=== PATIENT | female | born 1975 | race Caucasian/White ===

== ENCOUNTER 2017-07-21 10:39 | Emergency (ER) | payer BC ==
[~2017-07-21] VITALS: Ht 162.6 cm; Wt 106.3 kg
[~2017-07-21 10:39] MED LIST: COLACE100 MG PO; DARVOCET-N 1001 EAC1 PO; MOTRIN600 MG PO; Motrin PO; NOHOMEMEDS; PRENATAL TABLE1 EAC3 PO; VALIUM5 MG PO; VICODIN 5-5001 EACH PO; VICODIN,LORT1 TABLET PO; ZOLOFT50 MG PO; ZYRTEC10 M2 PO
[2017-07-21 11:38] LABS: EOSINOPHIL COUNT 0.1 K/uL (0-0.3); HEMATOCRIT 44.2 % (36.0-46.0); IMMATURE GRANULOCYTE (%) 0.3 % (0.0-0.7); INSTRUMENT ABS NEUTROPHIL CT 1.4 K/uL; LYMPHOCYTE COUNT 0.9 K/uL (1.0-2.8); MCH 25.5 PG (29.0-34.0); MCHC 32.4 G/DL (30.0-36.0); MCV 78.8 FL (83-99); MEAN PLAT.VOLUME 11.2 uM^3 (9.5-12.4); MONOCYTE (%) 23.5 % (3-12); MONOCYTE COUNT 0.7 K/uL (0-0.8); NEUTROPHIL (%) 45.4 % (45-76); NEUTROPHIL COUNT 1.4 K/uL (1.8-6.4); PLATELET COUNT 180 K/uL (156-360); RBC DIS.WIDTH-CV 14.2 % (11.8-14.6); RBC DIS.WIDTH-SD 40.6 % (39-53); RED BLOOD COUNT 5.61 M/uL (3.80-5.20)
[2017-07-21 11:46] LABS: CHLORIDE 103 mEq/L (99-109); INTER. NORMALIZED RATIO 1.2; POTASSIUM 3.2 mEq/L (3.7-5.4); SODIUM 137 mEq/L (136-147)
[2017-07-21 11:48] LABS: GLUCOSE 127 mg/dL (70-99)
[2017-07-21 11:49] LABS: ANION GAP 12 MEQ/L (2-14); PTT 29.6 SEC (25-37)
[2017-07-21 11:52] LABS: GFR ESTIMATE (CALCULATED) > 59 mL/min/
[2017-07-21 11:53] LABS: UREA NITROGEN (BUN) 7 mg/dL (9-23)
[2017-07-21 11:57] LABS: TROP-I INTERPRETATION NEGATIVE; TROPONIN-I < 0.01 ng/mL (0.0-0.30)
[2017-07-21 13:56] LABS: TROP-I INTERPRETATION NEGATIVE; TROPONIN-I < 0.01 ng/mL (0.0-0.30)
[2017-07-21] MEDS ORDERED: TYLENOL WITH C1 EACH PO (14:11)
[2017-07-21 14:50] VITALS: BP 138/90
== END 2017-07-21 14:53 | disposition home or self-care (01) ==
LOC: EME → EDBD 10:39 → EME 14:53
PROVIDERS: Emergency Medicine
DX: R07.89 Other chest pain (principal); R10.9 Unspecified abdominal pain; E11.9 Type 2 diabetes mellitus without complications; Z79.84 Long term (current) use of oral hypoglycemic drugs
CPT/HCPCS: 71010; 71275; 74177; 80048; 84484; 85025; 85379; 85610; 85730; 93005; 99281; 99285

== ENCOUNTER 2017-07-29 20:00 | Emergency (ER) | payer BC ==
[~2017-07-29] VITALS: Ht 162.6 cm; Wt 110.1 kg
[~2017-07-29 20:00] MED LIST changes: +TYLENOL WITH C1 EACH PO
[2017-07-29 20:06] VITALS: BP 148/94
[2017-07-29] MEDS ORDERED: PERCOCET 5/31 TABLET PO (20:33)
[2017-07-29] MEDS ORDERED: VALIUM5 MG PO (20:33)
== END 2017-07-29 20:42 | disposition home or self-care (01) ==
LOC: EME 20:00
DX: M62.838 Other muscle spasm (principal); M54.2 Cervicalgia; F17.200 Nicotine dependence, unspecified, uncomplicated
CPT/HCPCS: 99281; 99283

== ENCOUNTER 2017-12-29 04:58 | Emergency (ER) | payer BC ==
[~2017-12-29] VITALS: Ht 162.6 cm; Wt 108.2 kg
[~2017-12-29 04:58] MED LIST changes: +PERCOCET 5/31 TABLET PO
[2017-12-29 08:38] VITALS: BP 131/100
== END 2017-12-29 08:40 | disposition home or self-care (01) ==
LOC: EME 04:58
DX: M79.661 Pain in right lower leg (principal); Z87.891 Personal history of nicotine dependence
CPT/HCPCS: 93971; 99281; 99284

== ENCOUNTER 2018-03-20 19:42 | Emergency (ER) | payer BC ==
[~2018-03-20] VITALS: Ht 160 cm; Wt 106.8 kg
[2018-03-20 20:38] LABS: HEMATOCRIT 39.5 % (36.0-46.0); HEMOGLOBIN 12.8 G/DL (11.9-15.5); MCH 26.6 PG (29.0-34.0); MCHC 32.4 G/DL (30.0-36.0); PLATELET COUNT 257 K/uL (156-360); RBC DIS.WIDTH-CV 14.4 % (11.8-14.6); RBC DIS.WIDTH-SD 42.2 % (39-53); RED BLOOD COUNT 4.82 M/uL (3.80-5.20); WHITE BLOOD COUNT 5.9 K/uL (4.1-10.2)
[2018-03-20 20:46] LABS: CHLORIDE 102 mEq/L (99-109); POTASSIUM 4.2 mEq/L (3.7-5.4); SODIUM 138 mEq/L (136-147)
[2018-03-20 20:47] LABS: APPEARANCE CLEAR ((CLEAR)); BILIRUBIN NEGATIVE; BLOOD NEGATIVE; COLOR YELLOW ((YELLOW)); GLUCOSE (STRIP) NEGATIVE; KETONES NEGATIVE; LEUKOCYTES TRACE; NITRITE NEGATIVE; PROTEIN (STRIP) NEGATIVE; SPECIFIC GRAVITY 1.013 (1.000-1.030); UROBILINOGEN 0.2 MG/DL (0.2-1.0)
[2018-03-20 20:48] LABS: GLUCOSE 139 mg/dL (70-99)
[2018-03-20 20:49] LABS: TOTAL PROTEIN 7.5 g/dL (6.4-8.3)
[2018-03-20 20:49] LABS: BACTERIA NONE SEEN /HPF; EPITHELIAL CELLS 1+ /HPF; MUCUS TRACE /LPF; RED BLOOD CELLS 0-5 /HPF (0-5); UCUL ADDED? NO; WHITE BLOOD CELLS 0-5 /HPF (0-5)
[2018-03-20 20:50] LABS: TOTAL BILIRUBIN 0.5 mg/dL (0.0-1.0)
[2018-03-20 20:52] LABS: ALKALINE PHOSPHATASE 79 IU/L (3-129); CREATININE 0.8 mg/dL (0.6-1.3); GFR ESTIMATE (CALCULATED) > 59 mL/min/
[2018-03-20 20:53] LABS: UREA NITROGEN (BUN) 10 mg/dL (9-23)
[2018-03-20 20:54] LABS: AST (GOT) 15 IU/L (2-34)
[2018-03-20 20:55] LABS: ALT (GPT) 19 IU/L (3-49)
[2018-03-20 21:01] LABS: QUANTITATIVE HCG < 4.0 MIU/ML
[2018-03-20 21:26] LABS: AMYLASE 40 IU/L (1-118)
[2018-03-20 21:35] LABS: LIPASE 37 U/L (1.0-51.0)
[2018-03-20] MEDS ORDERED: CARAFATE1 GM PO (23:23)
[2018-03-20] MEDS ORDERED: DEXILANT30 MG PO (23:23)
[2018-03-20 23:35] VITALS: BP 122/76
== END 2018-03-20 23:36 | disposition home or self-care (01) ==
LOC: RME 19:42 → EME 19:42 → RME 23:36
DX: K29.70 Gastritis, unspecified, without bleeding (principal); K76.0 Fatty (change of) liver, not elsewhere classified; R16.0 Hepatomegaly, not elsewhere classified; E11.9 Type 2 diabetes mellitus without complications; K58.9 Irritable bowel syndrome, unspecified; Z87.891 Personal history of nicotine dependence; Z86.2 Personal history of diseases of the blood and blood-forming organs and certain disorders involving the immune mechanism; Z88.1 Allergy status to other antibiotic agents; Z91.011 Allergy to milk products; Z88.5 Allergy status to narcotic agent; Z91.018 Allergy to other foods
CPT/HCPCS: 76705; 80053; 81003; 82150; 83690; 84702; 85027; 99281; 99284; J1885

== ENCOUNTER 2018-03-31 07:29 | Emergency (ER) | payer BC ==
[~2018-03-31] VITALS: Ht 162.6 cm; Wt 107.7 kg
[~2018-03-31 07:29] MED LIST changes: +CARAFATE1 GM PO; +DEXILANT30 MG PO
[2018-03-31 08:26] LABS: BASOPHIL (%) 2.4 % (0-1); BASOPHIL COUNT 0.1 K/uL (0-0.1); EOSINOPHIL (%) 4.7 % (0-5); EOSINOPHIL COUNT 0.1 K/uL (0-0.3); HEMATOCRIT 38.2 % (36.0-46.0); HEMOGLOBIN 12.6 G/DL (11.9-15.5); IMMATURE GRANULOCYTE (%) 0.3 % (0.0-0.7); LYMPHOCYTE (%) 49.7 % (15-42); LYMPHOCYTE COUNT 1.5 K/uL (1.0-2.8); MCH 27.3 PG (29.0-34.0); MCV 82.7 FL (83-99); MONOCYTE (%) 15.5 % (3-12); MONOCYTE COUNT 0.5 K/uL (0-0.8); NEUTROPHIL (%) 27.4 % (45-76); NEUTROPHIL COUNT 0.8 K/uL (1.8-6.4); PLATELET COUNT 182 K/uL (156-360); RBC DIS.WIDTH-CV 14.5 % (11.8-14.6); RBC DIS.WIDTH-SD 42.9 % (39-53); RED BLOOD COUNT 4.62 M/uL (3.80-5.20)
[2018-03-31 08:35] LABS: CHLORIDE 106 mEq/L (99-109); POTASSIUM 4.4 mEq/L (3.7-5.4); SODIUM 138 mEq/L (136-147)
[2018-03-31 08:36] LABS: GLUCOSE 115 mg/dL (70-99)
[2018-03-31 08:40] LABS: CREATININE 0.8 mg/dL (0.6-1.3); GFR ESTIMATE (CALCULATED) > 59 mL/min/
[2018-03-31 08:41] LABS: UREA NITROGEN (BUN) 9 mg/dL (9-23)
[2018-03-31 08:49] LABS: QUANTITATIVE HCG < 4.0 MIU/ML
[2018-03-31 08:54] LABS: APPEARANCE CLEAR ((CLEAR)); BILIRUBIN NEGATIVE; BLOOD NEGATIVE; COLOR STRAW ((YELLOW)); GLUCOSE (STRIP) NEGATIVE; KETONES NEGATIVE; LEUKOCYTES MODERATE; NITRITE NEGATIVE; PROTEIN (STRIP) NEGATIVE; SPECIFIC GRAVITY 1.005 (1.000-1.030); UROBILINOGEN 0.2 MG/DL (0.2-1.0)
[2018-03-31 08:56] LABS: BACTERIA 2+ /HPF; EPITHELIAL CELLS 1+ /HPF; MUCUS TRACE /LPF; RED BLOOD CELLS 0-5 /HPF (0-5)
[2018-03-31] MEDS ORDERED: KEFLEX500 MG PO (09:03)
[2018-03-31 09:17] LABS: C-REACTIVE PROTEIN 10.6 MG/L (0-10)
[2018-03-31 09:30] LABS: ERTH.SED.RATE 63 MM/HR (0-20)
[2018-03-31 09:40] VITALS: BP 162/88
== END 2018-03-31 09:42 | disposition home or self-care (01) ==
LOC: EME 07:29
PROVIDERS: Nurse Practitioner Family
DX: K12.1 Other forms of stomatitis (principal); T42.6X5A Adverse effect of other antiepileptic and sedative-hypnotic drugs, initial encounter; N39.0 Urinary tract infection, site not specified; I10 Essential (primary) hypertension; E11.9 Type 2 diabetes mellitus without complications; Z88.5 Allergy status to narcotic agent; Z88.1 Allergy status to other antibiotic agents; Z91.018 Allergy to other foods; E73.9 Lactose intolerance, unspecified
CPT/HCPCS: 80048; 81003; 84702; 85025; 85651; 86140; 99281; 99284